=== PATIENT | female | born 1955 | race Caucasian/White ===

== ENCOUNTER 2017-04-24 13:50 | Emergency (ER) ==
--- NOTE | 2017-04-24 14:01 | ED.PDOC ---
General ED Provider: Dr. STEPHY MORTON Chief Complaint: Back Pain Stated Complaint: Carmelaeinwanda is a 61 year old who comes to the Er with complaints of lower back pain for the past 3 days. Tried over the counter soma with no relef. Is out of her percocet which she takes occasionally for mid upper thorasic pain. Time Seen by Physician: 14:10 Mode of Arrival: Walk-In Exam Limitations: No limitations Nursing and Triage Documentation Reviewed and Agree: Yes Musculoskeletal Complaint Exam - Back Pain Complaint/Exam Mechanism of Injury: Reports: No known trauma Onset/Duration: 3 days Symptoms Are: Still present Timing: Constant Initial Severity: Moderate Current Severity: Severe Location: Reports: Diffuse Character: Reports: Aching, Spasmodic Aggravating: Reports: Movements, Bending Alleviating: Reports: Position Associated Signs and Symptoms: Denies: Swelling TAD Risk Factors: Reports: None AAA Risk Factors: Reports: None Cauda Equina Risk Factors: Reports: None Epidural Abcess Risk Factors: Reports: None Focal Tenderness: Yes (Lower back ) Paraspinal Muscle Tenderness: Yes Paraspinal Muscle Spasm: Yes Scoliosis: No Lordosis: No Kyphosis: No SLR Test: Right Positive (at 90 degress ), Left Negative Focal Weakness: Present: None Focal Sensory Loss: Present: None Gait: Present: Normal Back Picture: 1 - pain and tendeness Differential Diagnoses: Herniated Disk, Strain, Sprain Review of Systems - Review Of Systems Constitutional: Reports: No symptoms Eyes: Reports: No symptoms Ears, Nose, Mouth, Throat: Reports: No symptoms Respiratory: Reports: No symptoms Cardiac: Reports: No symptoms GI: Reports: No symptoms : Reports: No symptoms Musculoskeletal: Reports: Back pain, Joint pain, Muscle pain, Muscle stiffness Skin: Reports: No symptoms Neurological: Reports: Anxiety Endocrine: Reports: No symptoms Hematologic/Lymphatic: Reports: No symptoms All Other Systems: Reviewed and Negative Past Medical History - Past Medical History Previously Healthy: Yes Endocrine: Reports: None, Dyslipidemia Cardiovascular: Reports: Hypertension Respiratory: Reports: None Hematological: Reports: None Gastrointestinal: Reports: None Genitourinary: Reports: None Neuro/Psych: Reports: None Musculoskeletal: Reports: Back Pain (Thorasic nerve pain) Cancer: Reports: None - Surgical History General Surgical History: Reports: Hysterectomy, , Other (Breast reduction. Tummy tuck) - Family History Family History: Reports: None - Social History Hx Substance Use: No Lives: With family - Immunizations Influenza Vaccine within 12 Months: No Pneumococcal Vaccine up to Date: No Physical Exam - Physical Exam Appearance: Ill-appearing Ill-appearing: Mild Pain Distress: Severe ENT: Oropharynx normal Neck: Supple Respiratory: Airway patent, Breath sounds clear, Breath sounds equal, Respirations nonlabored Cardiovascular: RRR, Pulses normal, No rub, No murmur GI/: Soft, Nontender, No masses, Bowel sounds normal, No Organomegaly Musculoskeletal: Normal strength, ROM intact, No edema, No calf tenderness, Limited ROM (lower back ) Skin: Warm, Dry, Normal color Neurological: Sensation intact, Motor intact, Reflexes intact, Cranial nerves intact, Alert, Oriented Psychiatric: Anxious Critical Care Note - Critical Care Note Total Time (mins): 0 Course - Course Orders, Labs, Meds: Orders Category Date Time Status Hydromorphone HCl [Dilaudid 1 mg/ml Syringe] MEDS 04/24/17 14:24 Discontinued 1 mg IM ONCE STA Medications Discontinued Medications Generic Name Dose Route Start Last Admin Trade Name Heronq PRN Reason Stop Dose Admin Hydromorphone HCl 1 mg 04/24/17 14:24 Dilaudid 1 Mg/Ml Syringe IM 04/24/17 14:25 ONCE STA Vital Signs: Temp Pulse Resp BP Pulse Ox 04/24/17 13:57 97.7 F 83 18 137/87 98 Departure - Departure Time of Disposition: 14:59 Disposition: HOME SELF-CARE Discharge Problem: Backache Instructions: Lower Back Exercises (ED), Lumbar Radiculopathy (ED) Condition: Fair Pt referred to PMD for follow-up: Yes Additional Instructions: Rest FOllow up with PCP for MRI and Physical therapy Prescriptions: Cyclobenzaprine HCl [Flexeril] 10 mg PO TID #20 tablet Oxycodone-Acetaminophe 7.5-325 [Percocet 7.5-325] 1 tab PO Q4H #20 tablet Allergies/Adverse Reactions: Allergies aspirin Allergy (Severe, Unverified 07/12/14 15:52) HIVES oxaprozin [From Daypro] Allergy (Severe, Unverified 07/12/14 15:53) Hives Home Medications: Ambulatory Orders Bisoprolol/Hydrochlorothiazide [Ziac 2.5-6.25 Mg Tablet] 1 each PO DAILY Estrogens,Conj.,Synthetic B [Enjuvia] 0.3 mg PO 2-3 times a week 07/12/14 Tramadol HCl 50 mg PO PRN 07/12/14 Atorvastatin Calcium [Lipitor] 10 mg PO DAILY 02/05/15 Carisoprodol [Soma] 350 mg PO DAILY 02/05/15 Cyclobenzaprine HCl [Flexeril] 10 mg PO TID #20 tablet 04/24/17 Oxycodone-Acetaminophe 7.5-325 [Percocet 7.5-325] 1 tab PO Q4H #20 tablet Oxycodone-Acetaminophen 5-325 [Percocet 5-325] 1 tab PO QPM 04/24/17 Disposition Discussed With: Patient
[2017-04-24 14:03] VITALS: BP 137/87; TEMP 97.7; BMI 26.5
[2017-04-24] MEDS ORDERED: DILAUDID 1 MG/ML SYRINGE IM STA (14:24)
== END 2017-04-24 15:33 | disposition home or self-care (01) ==
LOC: ED 13:50
DX: M54.5 Low back pain (principal)
CPT/HCPCS: 96372; 99282

== ENCOUNTER 2017-05-16 12:53 | Emergency (ER) ==
[2017-05-16 12:53] VITALS: BMI 26.5
[2017-05-16 12:55] VITALS: BP 131/84; TEMP 99.2
[2017-05-16] MEDS ORDERED: DILAUDID 1 MG/ML SYRINGE IM STA (13:23)
[2017-05-16] MEDS ORDERED: SOLU-MEDROL 125 MG IM STA (13:23)
--- NOTE | 2017-05-16 13:26 | ED.PDOC ---
General ED Provider: Dr. STEPHY MORTON Chief Complaint: Back Pain Stated Complaint: Pateint was seen here for similar complains 3 weeks prior but states that the pain has been coming back on the right upper buttock. Time Seen by Physician: 13:24 Mode of Arrival: Walk-In Information Source: Patient Exam Limitations: No limitations Nursing and Triage Documentation Reviewed and Agree: Yes Review of Systems - Review Of Systems Constitutional: Reports: No symptoms Eyes: Reports: No symptoms Ears, Nose, Mouth, Throat: Reports: No symptoms Respiratory: Reports: No symptoms Cardiac: Reports: No symptoms GI: Reports: No symptoms : Reports: No symptoms Musculoskeletal: Reports: Back pain Skin: Reports: No symptoms Neurological: Reports: No symptoms Endocrine: Reports: No symptoms Hematologic/Lymphatic: Reports: No symptoms All Other Systems: Reviewed and Negative Past Medical History - Past Medical History Previously Healthy: Yes Endocrine: Reports: None, Dyslipidemia Cardiovascular: Reports: Hypertension Respiratory: Reports: None Hematological: Reports: None Gastrointestinal: Reports: None Genitourinary: Reports: None Neuro/Psych: Reports: None Musculoskeletal: Reports: Back Pain (Thorasic nerve pain) Cancer: Reports: None Last Menstrual Period: none - Surgical History General Surgical History: Reports: Hysterectomy, , Other (Breast reduction. Tummy tuck) - Family History Family History: Reports: None - Social History Smoking Status: Former smoker Hx Substance Use: No Alcohol Screening: Occasionally - Immunizations Influenza Vaccine within 12 Months: No Pneumococcal Vaccine up to Date: No Physical Exam - Physical Exam Appearance: Ill-appearing, Well-nourished Ill-appearing: Mild Pain Distress: Severe Eyes: ARON, EOMI, Conjunctiva clear ENT: Ears normal, Nose normal, Oropharynx normal Neck: Supple Respiratory: Airway patent, Breath sounds clear, Breath sounds equal, Respirations nonlabored Cardiovascular: RRR, Pulses normal, No rub, No murmur GI/: Soft, Nontender, No masses, Bowel sounds normal, No Organomegaly Musculoskeletal: Normal strength, No edema, No calf tenderness, Limited ROM ( right lower ext ) Skin: Warm, Dry, Normal color Neurological: Sensation intact, Motor intact, Reflexes intact, Cranial nerves intact, Alert, Oriented Psychiatric: Affect appropriate, Mood appropriate Critical Care Note - Critical Care Note Total Time (mins): 0 Course - Course Orders, Labs, Meds: Orders Category Date Time Status Hydromorphone HCl [Dilaudid 1 mg/ml Syringe] MEDS 05/16/17 13:23 Discontinued 1 mg IM ONCE STA Methylprednisolone Sod Succ/Pf [Solu-Medrol 125 mg] MEDS 05/16/17 13:23 Discontinued 125 mg IM ONCE STA Medications Discontinued Medications Generic Name Dose Route Start Last Admin Trade Name Freq PRN Reason Stop Dose Admin Hydromorphone HCl 1 mg 05/16/17 13:23 05/16/17 13:35 Dilaudid 1 Mg/Ml Syringe IM 05/16/17 13:24 1 mg ONCE STA Administration Methylprednisolone Sodium Succinate 125 mg 05/16/17 13:23 05/16/17 13:37 Solu-Medrol 125 Mg IM 05/16/17 13:24 125 mg ONCE STA Administration Vital Signs: Temp Pulse Resp BP Pulse Ox 05/16/17 12:54 99.2 F 112 H 18 131/84 96 Departure - Departure Time of Disposition: 14:00 Disposition: HOME SELF-CARE Discharge Problem: Sciatica Qualifiers: Laterality: right Qualified Code(s): M54.31 - Sciatica, right side Instructions: Lumbar Radiculopathy (ED) Condition: Good Pt referred to PMD for follow-up: Yes Additional Instructions: Take Medications as prescribed Follow up with PCP In 3 days Prescriptions: Cyclobenzaprine HCl [Flexeril] 10 mg PO TID PRN #20 tablet PRN Reason: back spasms Methylprednisolone [Medrol Dosepak] 4 mg PO DIRECTED #1 pkg Oxycodone HCl/Acetaminophen [Percocet 5-325 mg Tablet] 1 each PO Q6H PRN #20 tablet PRN Reason: back pain Allergies/Adverse Reactions: Allergies aspirin Allergy (Severe, Verified 05/16/17 12:56) HIVES oxaprozin [From Daypro] Allergy (Severe, Verified 05/16/17 12:56) Hives Home Medications: Ambulatory Orders Bisoprolol/Hydrochlorothiazide [Ziac 2.5-6.25 Mg Tablet] 1 each PO DAILY Estrogens,Conj.,Synthetic B [Enjuvia] 0.3 mg PO 2-3 times a week 07/12/14 Tramadol HCl 50 mg PO PRN 07/12/14 Atorvastatin Calcium [Lipitor] 10 mg PO DAILY 02/05/15 Carisoprodol [Soma] 350 mg PO DAILY 02/05/15 Oxycodone-Acetaminophen 5-325 [Percocet 5-325] 1 tab PO QPM 04/24/17 Cyclobenzaprine HCl [Flexeril] 10 mg PO TID PRN #20 tablet 05/16/17 Methylprednisolone [Medrol Dosepak] 4 mg PO DIRECTED #1 pkg 05/16/17 Oxycodone HCl/Acetaminophen [Percocet 5-325 mg Tablet] 1 each PO Q6H PRN #20 tablet 05/16/17 Disposition Discussed With: Patient, Family
== END 2017-05-16 14:11 | disposition home or self-care (01) ==
LOC: ED 12:53
DX: M54.31 Sciatica, right side (principal)
CPT/HCPCS: 96372; 99282

== ENCOUNTER 2017-05-19 09:01 | Outpatient (CLI) ==
--- NOTE | 2017-05-19 13:18 | MRI ---
EXAM: MRI lumbar spine without IV contrast. DATE: 19 May 2017. HISTORY: Low back pain. TECHNIQUE: Sagittal and axial T1W and T2W sequences of the lumbar spine along with sagittal IR and c oronal T2W sequences were obtained using 1.2 Shy magnet. No IV contrast. COMPARISON: LS spine series 03/06/2011. MRI T-spine 17 April 2014. FINDINGS: There are five [id number] lumbar vertebra. No lumbar scoliosis is evident. No acute lumbar fracture, subluxation, osseous malignancy, or pars interarticularis defect is demonstrated. Lumbar vertebra are normal in height. Tiny, chronic Schmorl's nodes are seen at T11, T12, and L1. T iny osteophytes are seen at several lower thoracic and lumbar vertebra. T1W bone marrow signal is sl ightly heterogeneous due to areas of fatty infiltration. T2W/T1W bright, IR dark, 7 mm focus in the L4 vertebral bodies consistent with a benign hemangioma. Minor disc space narrowing is evident at L5 -S1. Remaining intervertebral discs are normal in height. No sacral fracture or stress reaction is apparent. SI joints are unremarkable. Conus medullaris terminates at L1. Visible spinal cord is no rmal. No retroperitoneal lymphadenopathy, paraspinal mass, or aortic aneurysm is detected. Paraspinal musc ulature is symmetric bilaterally. Visible portions of the liver, spleen, adrenal glands, and right k idney are normal. A T2W bright, T1W dark, 4.3 x 5 mm focus in the posterior cortex midzone left kidn ey is likely benign cyst. Segmental analysis: T11-12: Minimal posterior disc bulge does not cause cord compression, central stenosis or foraminal stenosis. T12-L1: Normal. L1-2: Normal. L2-3: Normal. L3-4: Minimal posterior to left foraminal disc bulge causes minimal left inferior foraminal encroach ment. No central canal stenosis. L4-5: Minimal posterior to foraminal disc bulge causes minimal bilateral inferior foraminal encroach ment. No central canal stenosis. L5-S1: Minimal posterior disc bulge and minor facet disease do not cause central stenosis or foramin al stenosis. IMPRESSIONS: 1. L-spine minor spondylosis, facet arthropathy, and DDD. 2. Minor foraminal encroachment at L3-4 and and L4-5. 3. T-L-spine small, chronic Schmorl's nodes. 4. No lumbar spine central canal stenosis. 5. Benign hemangioma in the L4 body. 6. Left kidney probable benign cortical cyst (5 mm).
== END 2017-05-19 09:02 | disposition home or self-care (01) ==
LOC: RAD 09:01
PROVIDERS: ATTEND Family Medicine
DX: M54.5 Low back pain (principal)

== ENCOUNTER 2017-12-03 12:38 | Emergency (ER) | payer OTHER ==
[2017-12-03 12:51] VITALS: BP 114/85; TEMP 98.5; BMI 27.2
--- NOTE | 2017-12-03 14:03 | DI ---
EXAM: LEFT ANKLE 3 VIEWS HISTORY: Injury, pain FINDINGS: There is an oblique mildly displaced fracture involving the distal fibula beginning at abo ut 2 cm superior to the fibular tip. Nonstandard patient positioning although cannot exclude mild wi dening of the tibial talar joint laterally. Probable small ankle joint effusion. No other fractures . Ankle soft tissue swelling. Mild enthesopathy of the posterior calcaneus. IMPRESSION: Distal fibular fracture as described.
--- NOTE | 2017-12-03 14:04 | DI ---
EXAM: LEFT FOOT, 3 VIEWS HISTORY: Injury, pain FINDINGS / IMPRESSION: Redemonstration of the distal fibular fracture and findings of the ankle. No injuries of the foot proper are identified.
--- NOTE | 2017-12-03 14:13 | ED.PDOC ---
General ED Provider: Dr. KEESHA PEREZ Chief Complaint: Ankle Pain/Injury Stated Complaint: syncope pain left ankle Time Seen by Physician: 13:00 Mode of Arrival: Walk-In Information Source: Patient Exam Limitations: No limitations Primary Care Provider: DANIELLE JOSEPH Nursing and Triage Documentation Reviewed and Agree: Yes Reviewed sepsis parameters & appropriate labs ordered?: Yes System Inflammatory Response Syndrome: Not Applicable (no neck pain) Sepsis Protocol: For patient's 13 years and over: Temp is 96.8 and below OR 101 and greater Pulse >90 BPM Resp >20/minute Acutely Altered Mental Status Are patient's symptoms suggestive of a new infection, such as: -Pneumonia -Skin, Soft Tissue -Endocarditis -UTI -Bone, Joint Infection -Implantable Device -Acute Abdominal Infection -Wound Infection -Meningitis -Blood Stream Catheter Infection -Unknown Neurological Complaint Exam - Syncope/Near Syncope Complaint/Exam Onset/Duration: 1 hr ago syncope fall left ankle pain no neck pain Symptoms Are: Still present Episodes Lasting: Seconds Number of Episodes: 1 Frequency of Episodes: 1 Episodes Witnessed: No Loss of Consciousness: Yes (a few seconds ) Associated Head Trauma: No Activity at Onset: At rest Aggravating: None Alleviating: Reports: Spontaneous resolution Associated Signs and Symptoms: Denies: Pain, Decreased oral intake, Vomiting, Diarrhea, GI blood loss, Short of air, Chest pain, Palpitations, Diaphoresis, Lightheadedness, Dizziness, Weakness, AMS, Numbness, Headache, Seizure, Remote head trauma, Recent head trauma Cardiac Risk Factors: Reports: Hypertension, Elevated lipids GI Bleed Risk Factors: Reports: None Dysrhythmia Risk Factors: Reports: None JVD Present: No Carotid Bruit Present: No Glascow Coma Scale (see protocol): 15 Nystagmus Present: No Gag Reflex Present: Yes Meningeal Signs Positive: No Focal Weakness: Present: None Focal Sensory Loss: Present: None Gait: Normal (ankle pain left) Differential Diagnoses: Dysrhythmia, Hypovolemia, Vasovagal Episode Quality Indicators for Cardiac Chest Pain: EKG in 10min. Quality Indicator For Non-Traumatic Chest Pain/Syncope: EKG Performed Quality Indicators for AMI: EKG in 10min. Review of Systems - Review Of Systems Constitutional: Reports: No symptoms Eyes: Reports: No symptoms Ears, Nose, Mouth, Throat: Reports: No symptoms Respiratory: Reports: No symptoms Cardiac: Reports: No symptoms GI: Reports: No symptoms : Reports: No symptoms Musculoskeletal: Reports: Joint pain (left ankle) Skin: Reports: No symptoms Neurological: Reports: Headache Endocrine: Reports: No symptoms Hematologic/Lymphatic: Reports: No symptoms All Other Systems: Reviewed and Negative Past Medical History - Past Medical History Previously Healthy: Yes Endocrine: Reports: None, Dyslipidemia Cardiovascular: Reports: Hypertension Respiratory: Reports: None Hematological: Reports: None Gastrointestinal: Reports: None Genitourinary: Reports: None Neuro/Psych: Reports: None Musculoskeletal: Reports: Back Pain (Thorasic nerve pain) Cancer: Reports: None Last Menstrual Period: NA - Surgical History General Surgical History: Reports: Hysterectomy, , Other (Breast reduction. Tummy tuck) - Family History Family History: Reports: None - Social History Smoking Status: Former smoker Hx Substance Use: No Alcohol Screening: Occasionally - Immunizations Influenza Vaccine within 12 Months: No Pneumococcal Vaccine up to Date: No Physical Exam - Physical Exam Appearance: Well-appearing, No pain distress, Well-nourished Eyes: ARON, EOMI, Conjunctiva clear ENT: Ears normal, Nose normal, Oropharynx normal Respiratory: Airway patent, Breath sounds clear, Breath sounds equal, Respirations nonlabored Cardiovascular: RRR, Pulses normal, No rub, No murmur GI/: Soft, Nontender, No masses, Bowel sounds normal, No Organomegaly Musculoskeletal: Normal strength, ROM intact, No edema, No calf tenderness Skin: Warm, Dry, Normal color Neurological: Sensation intact, Motor intact, Reflexes intact, Cranial nerves intact, Alert, Oriented Psychiatric: Affect appropriate, Mood appropriate Interpretation - Policy Value Calculator Rate: Normal Rhythm: Sinus - EKG Interpretation Rate: Normal Rhythm: Sinus Ectopy: None [place]: [place] ST Segment: Normal Critical Care Note - Critical Care Note Total Time (mins): 0 Course - Course Hematology/Chemistry: 12/03/17 13:20 12/03/17 13:20 Orders, Labs, Meds: Lab Review 12/03/17 12/03/17 13:20 13:20 WBC 8.54 RBC 4.22 Hgb 13.4 Hct 37.9 MCV 89.8 MCH 31.8 H MCHC 35.4 RDW Coeff of Linda 12.8 Plt Count 151 Immature Gran % (Auto) 0.4 Neut % (Auto) 73.6 Lymph % (Auto) 17.6 Newton % (Auto) 6.7 Eos % (Auto) 1.5 Baso % (Auto) 0.2 Immature Gran # (Auto) 0.0 Neut # (Auto) 6.3 Lymph # (Auto) 1.5 [place] # (Auto) 0.6 Eos # (Auto) 0.1 Baso # (Auto) 0.0 Sodium 140 Potassium 3.5 Chloride 108 H Carbon Dioxide 24 Anion Gap 11.5 BUN 10 Creatinine 0.68 Estimated GFR (MDRD) 88.00 BUN/Creatinine Ratio 14.70 Glucose 119 H Calcium 9.2 Total Bilirubin 0.6 AST 12 L ALT 12 Alkaline Phosphatase 55 Total Creatine Kinase 38 Troponin I < 0.0100 Total Protein 6.6 Albumin 3.8 Globulin 2.8 Albumin/Globulin Ratio 1.36 Orders Category Date Time Status EKG-(ED ONLY) Stat CARDIO 12/03/17 13:03 Completed CBC W/ AUTO DIFF Stat LAB 12/03/17 13:20 Completed COMPREHENSIVE METABOLIC PANEL Stat LAB 12/03/17 13:20 Completed CREATINE KINASE Stat LAB 12/03/17 13:20 Completed TROPONIN I Stat LAB 12/03/17 13:20 Completed ANKLE, LEFT MIN 3 VIEWS Stat RADS 12/03/17 13:22 Completed FOOT, LEFT 3 VIEWS Stat RADS 12/03/17 13:23 Completed Vital Signs: Temp Pulse Resp BP Pulse Ox 12/03/17 12:45 98.5 F 80 16 114/85 96 Departure - Departure Time of Disposition: 15:00 Disposition: HOME SELF-CARE Discharge Problem: Ankle fracture, left Qualifiers: Encounter type: initial encounter Fracture type: closed Qualified Code(s): S82.892A - Other fracture of left lower leg, initial encounter for closed fracture Syncope Qualifiers: Syncope type: unspecified Qualified Code(s): R55 - Syncope and collapse Instructions: Syncope (ED), Ankle Fracture (DC) Condition: Good Pt referred to PMD for follow-up: Yes IPMP verified?: No Additional Instructions: Please call your Family Physician as soon as possible to schedule a follow-up appointment. Allergies/Adverse Reactions: Allergies aspirin Allergy (Severe, Verified 12/03/17 12:43) HIVES oxaprozin [From Daypro] Allergy (Severe, Verified 12/03/17 12:43) Hives Home Medications: Ambulatory Orders Bisoprolol/Hydrochlorothiazide [Ziac 2.5-6.25 Mg Tablet] 1 each PO DAILY Estrogens,Conj.,Synthetic B [Enjuvia] 0.3 mg PO 2-3 times a week 07/12/14 Tramadol HCl 50 mg PO PRN 07/12/14 Atorvastatin Calcium [Lipitor] 10 mg PO DAILY 02/05/15 Carisoprodol [Soma] 350 mg PO DAILY 02/05/15 Oxycodone HCl/Acetaminophen [Percocet 5-325 mg Tablet] 1 each PO Q6H PRN #20 tablet 05/16/17 Disposition Discussed With: Patient
--- NOTE | 2017-12-03 14:39 | CT ---
EXAM: CT BRAIN HISTORY: Syncope, pain TECHNIQUE: CT brain without intravenous contrast. 5-mm axial sections with Reformations. COMPARISON: None FINDINGS: Brain is unremarkable without evidence of hemorrhage or large vessel distribution recent ischemic in farction. There is no suggestion of acute hydrocephalus or subdural fluid collection. No mass or ma ss effect. Cranium is within normal limits. Mastoid processes are aerated. The visualized paranasal sinuses a re clear. IMPRESSION: No acute intracranial process.
== END 2017-12-03 15:00 | disposition home or self-care (01) ==
LOC: ED 12:38
DX: S82.892A Other fracture of left lower leg, initial encounter for closed fracture (principal); R55 Syncope and collapse; W19.XXXA Unspecified fall, initial encounter; R51 Headache; I10 Essential (primary) hypertension; E78.5 Hyperlipidemia, unspecified
CPT/HCPCS: 36415; 80053; 82550; 84484; 85025; 93005; 93010; 99283